=== PATIENT | male | born 1950 | race African-American/Black ===

== ENCOUNTER → 2020-10-05 | Outpatient (CLI) | payer OTHER ==
--- NOTE | 2020-10-05 12:28 | RAD ---
US DPLX ARTR EXTREM LOWER BILAT, US DPLX ARTR EXTREM LOWER BILAT Indication: Reason: INTERMITTENT CLAUDICATION BLE HX OF TOBACCO ABUSE / Spl. Instructions: / History : Comparison: None. Procedure: Arterial pressures are measured in the arms and ankles. Real-time grayscale, color flow D oppler, and Doppler spectral waveform analysis of the arterial system of the lower extremity is perfo rmed. Findings: Right arm: 122 mm Hg. Right ankle: 130 mm Hg. Right leg BALJIT: 1.06. Left arm: 115 mm Hg. Left ankle: 129 mm Hg. Left leg BALJIT: 1.13. Findings: Right lower extremity: Mild atheromatous plaque. Biphasic or triphasic waveforms. No significant [place] elevation. Left lower extremity: Mild atheromatous plaque. Biphasic or triphasic waveforms. Borderline elevated velocity within the left distal superficial femoral artery measures 150 cm/s. IMPRESSION: 1. Mild bilateral atheromatous plaque. 2. Borderline elevated velocity within the left distal superficial femoral artery, may represent 30- 49 percent stenosis. 3. Normal bilateral ankle brachial indices. Electronically signed by: Rinku Quintana DO (10/05/2020 12:25 PM) [facility]
--- NOTE | 2020-10-05 12:29 | RAD ---
US ABDOMINAL AORTA SCREENING AAA History:Reason: AAA; HX OF TOBACCO ABUSE / Spl. Instructions: / History: Comparison: None Technique: Sonographic examination of the abdominal aorta was performed and multiple static images we re obtained. Abdominal aorta proximally measures 2.5 cm. Mid aspect measures 1.9 cm. Distal aspect measures 2.0 cm . Mild atheromatous plaque. No dissection or aneurysm. Common iliac arteries not well seen due to overlying structures. Impression: 1. No evidence of abdominal aortic aneurysm. Electronically signed by: Rinku Quintana DO (10/05/2020 12:27 PM) [facility]
== END ==
LOC: US 10:10
PROVIDERS: ATTEND Family Medicine
DX: I70.203 Unspecified atherosclerosis of native arteries of extremities, bilateral legs (principal); I71.4 Abdominal aortic aneurysm, without rupture
CPT/HCPCS: 76770; 93922; 93925